=== PATIENT | female | born 2000 | race Caucasian/White ===

== ENCOUNTER 2023-08-06 20:13 | Emergency (ER) | payer MEDICAID, SELFPAY ==
[2023-08-06] MEDS ORDERED: Sulfameth/Trimethoprim DS 800-160mg TAB ONE (20:47)
== END 2023-08-06 20:50 | disposition home or self-care (01) ==
LOC: BURERS 20:13
DX: L02.214 Cutaneous abscess of groin (principal)
CPT/HCPCS: 99282